=== PATIENT | male | born 1950 | race Caucasian/White ===

== ENCOUNTER 2024-02-11 11:58 | Outpatient (CLI) | payer OTHER, SELFPAY ==
--- NOTE | 2024-02-11 14:15 | P.ANES_ITS ---
Anesthesia Charges Start Date/Time Anesthesia Start Date: 02/11/24 Anesthesia Start Time: 13:45 Stop Date/Time Anesthesia Stop Date: 02/11/24 Anesthesia Stop Time: 14:13 Summary Extremes of Age - Over 70 or under 1: [employer]
--- NOTE | 2024-02-11 14:21 | W.ANESCHARGE ---
Anesthesia Charges Start Date/Time Anesthesia Start Date: 02/11/24 Anesthesia Start Time: 13:45 Stop Date/Time Anesthesia Stop Date: 02/11/24 Anesthesia Stop Time: 14:13 Summary Extremes of Age - Over 70 or under 1: MDA
== END 2024-02-11 11:59 | disposition home or self-care (01) ==
LOC: OP CLINIC 12:02
PROVIDERS: PCP Family Medicine; Visit Provider Internal Medicine Gastroenterology
DX: Z12.11 Encounter for screening for malignant neoplasm of colon (principal); K57.30 Diverticulosis of large intestine without perforation or abscess without bleeding; Z86.010 Personal history of colon polyps
CPT/HCPCS: 00811; 00812; 45378; 99100; J2704

== ENCOUNTER 2024-02-25 13:00 | Outpatient (CLI) | payer OTHER, SELFPAY ==
--- NOTE | 2024-02-25 14:33 | W.ANESCHARGE ---
Anesthesia Charges Start Date/Time Anesthesia Start Date: 02/25/24 Anesthesia Start Time: 15:10 Stop Date/Time Anesthesia Stop Date: 02/25/24 Anesthesia Stop Time: 15:35 Summary Extremes of Age - Over 70 or under 1: MDA
--- NOTE | 2024-02-25 15:38 | W.ANESCHARGE ---
Anesthesia Charges Start Date/Time Anesthesia Start Date: 02/25/24 Anesthesia Start Time: 15:10 Stop Date/Time Anesthesia Stop Date: 02/25/24 Anesthesia Stop Time: 15:35
== END 2024-02-25 13:01 | disposition home or self-care (01) ==
LOC: OP CLINIC 13:01
PROVIDERS: PCP Family Medicine; Visit Provider Internal Medicine Gastroenterology
DX: R13.10 Dysphagia, unspecified (principal); K22.2 Esophageal obstruction; K44.9 Diaphragmatic hernia without obstruction or gangrene
CPT/HCPCS: 00731; 43239; 43248; 88305; 99100; J2704